=== PATIENT | female | born 1965 | race Two or more races ===

== ENCOUNTER → 2017-08-29 | Outpatient (CLI) | payer OTHER ==
[~2017-08-29] VITALS: Ht 152.4 cm; Wt 67.1 kg
[~2017-08-29] MED LIST: DIOVAN160 M1 PO; FLONASE16 GM NS; IRON325 MG PO; ZYRTEC10 MG PO
== END | disposition home or self-care (01) ==
LOC: PPHC 08:37
DX: B34.9 Viral infection, unspecified (principal)

== ENCOUNTER 2020-09-21 14:33 | Outpatient (CLI) | payer OTHER ==
[~2020-09-21 14:33] MED LIST changes: +DICLOFENAC SODI50 MG PO; +NABUMETONE750 MG PO
== END 2020-09-21 14:41 | disposition home or self-care (01) ==
LOC: RAD 14:33
PROVIDERS: ATTEND Physical Medicine & Rehabilitation
DX: M79.642 Pain in left hand (principal); M89.8X8 Other specified disorders of bone, other site

== ENCOUNTER 2021-02-22 10:02 | Outpatient (CLI) | payer OTHER | END 2021-02-22 10:19 | disposition home or self-care (01) | LOC: MAMO-SONO 10:02 | PROVIDERS: ATTEND Internal Medicine Hematology & Oncology | DX: N64.89 Other specified disorders of breast (principal); Z12.31 Encounter for screening mammogram for malignant neoplasm of breast; D80.1 Nonfamilial hypogammaglobulinemia; I10 Essential (primary) hypertension; E78.2 Mixed hyperlipidemia ==

== ENCOUNTER → 2021-03-17 06:32 | Outpatient (CLI) | payer OTHER | END | disposition home or self-care (01) | LOC: LAB 06:32 | PROVIDERS: ATTEND Internal Medicine Hematology & Oncology | DX: D50.8 Other iron deficiency anemias (principal); R79.89 Other specified abnormal findings of blood chemistry; I10 Essential (primary) hypertension; R74.02 Elevation of levels of lactic acid dehydrogenase [LDH]; K76.89 Other specified diseases of liver; E55.9 Vitamin D deficiency, unspecified; R19.5 Other fecal abnormalities; D47.2 Monoclonal gammopathy; C90.00 Multiple myeloma not having achieved remission; R97.0 Elevated carcinoembryonic antigen [CEA]; R97.8 Other abnormal tumor markers; C50.919 Malignant neoplasm of unspecified site of unspecified female breast; D80.1 Nonfamilial hypogammaglobulinemia; E78.2 Mixed hyperlipidemia ==

== ENCOUNTER 2021-07-05 06:41 | Outpatient (CLI) | payer OTHER | END 2021-07-05 07:03 | disposition home or self-care (01) | LOC: LAB 06:41 | PROVIDERS: ATTEND Internal Medicine Hematology & Oncology | DX: D50.8 Other iron deficiency anemias (principal); R79.89 Other specified abnormal findings of blood chemistry; I10 Essential (primary) hypertension; R74.02 Elevation of levels of lactic acid dehydrogenase [LDH]; K76.89 Other specified diseases of liver; D63.8 Anemia in other chronic diseases classified elsewhere; D55.0 Anemia due to glucose-6-phosphate dehydrogenase [G6PD] deficiency; D51.8 Other vitamin B12 deficiency anemias; D51.1 Vitamin B12 deficiency anemia due to selective vitamin B12 malabsorption with proteinuria; D51.0 Vitamin B12 deficiency anemia due to intrinsic factor deficiency; E03.8 Other specified hypothyroidism; E06.3 Autoimmune thyroiditis; D80.1 Nonfamilial hypogammaglobulinemia; E78.2 Mixed hyperlipidemia ==

== ENCOUNTER 2021-07-05 07:13 | Outpatient (CLI) | payer OTHER | END 2021-07-05 07:14 | disposition home or self-care (01) | LOC: SONOGRAMA 07:13 | PROVIDERS: ATTEND Internal Medicine Hematology & Oncology | DX: E04.2 Nontoxic multinodular goiter (principal); I10 Essential (primary) hypertension; E78.2 Mixed hyperlipidemia; D80.1 Nonfamilial hypogammaglobulinemia ==

== ENCOUNTER 2021-08-03 14:00 | Outpatient (CLI) | payer OTHER | END 2021-08-03 14:11 | disposition home or self-care (01) | LOC: RAD 14:00 | PROVIDERS: ATTEND Physical Medicine & Rehabilitation | DX: M16.12 Unilateral primary osteoarthritis, left hip (principal) ==

== ENCOUNTER 2021-08-22 08:07 | Outpatient (CLI) | payer OTHER | END 2021-08-22 08:09 | disposition home or self-care (01) | LOC: SONOGRAMA 08:07 | PROVIDERS: ATTEND Pathology Anatomic Pathology & Clinical Pathology | DX: E04.2 Nontoxic multinodular goiter (principal) ==

== ENCOUNTER → 2021-11-21 | Outpatient (CLI) | payer OTHER | END | disposition home or self-care (01) | LOC: LAB 06:27 | PROVIDERS: ATTEND Internal Medicine Hematology & Oncology | DX: D80.1 Nonfamilial hypogammaglobulinemia (principal); I10 Essential (primary) hypertension; E78.2 Mixed hyperlipidemia; E04.2 Nontoxic multinodular goiter ==

== ENCOUNTER 2022-04-11 08:04 | Outpatient (CLI) | payer OTHER | END 2022-04-11 08:05 | disposition home or self-care (01) | LOC: RAD 08:04 | PROVIDERS: ATTEND Physical Medicine & Rehabilitation | DX: M54.2 Cervicalgia (principal) ==

== ENCOUNTER 2022-08-17 07:14 | Outpatient (CLI) | payer OTHER | END 2022-08-17 10:34 | disposition home or self-care (01) | LOC: MAMO-SONO 07:14 | PROVIDERS: ATTEND Internal Medicine Hematology & Oncology | DX: Z12.31 Encounter for screening mammogram for malignant neoplasm of breast (principal); N63.0 Unspecified lump in unspecified breast; N64.4 Mastodynia; D80.1 Nonfamilial hypogammaglobulinemia; I10 Essential (primary) hypertension; E78.2 Mixed hyperlipidemia; E03.4 Atrophy of thyroid (acquired) ==

== ENCOUNTER → 2022-09-01 06:35 | Outpatient (CLI) | payer OTHER | END | disposition home or self-care (01) | LOC: LAB 06:35 | PROVIDERS: ATTEND Internal Medicine Hematology & Oncology | DX: D50.8 Other iron deficiency anemias (principal); R79.9 Abnormal finding of blood chemistry, unspecified; I10 Essential (primary) hypertension; R74.02 Elevation of levels of lactic acid dehydrogenase [LDH]; K76.89 Other specified diseases of liver; D51.8 Other vitamin B12 deficiency anemias; E03.8 Other specified hypothyroidism; D47.2 Monoclonal gammopathy; C90.00 Multiple myeloma not having achieved remission; D80.1 Nonfamilial hypogammaglobulinemia; E78.2 Mixed hyperlipidemia; E04.2 Nontoxic multinodular goiter ==

== ENCOUNTER 2023-03-03 07:29 | Outpatient (CLI) | payer OTHER | END 2023-03-03 07:44 | disposition home or self-care (01) | LOC: LAB 07:29 | PROVIDERS: ATTEND Internal Medicine Hematology & Oncology | DX: D50.8 Other iron deficiency anemias (principal); R79.9 Abnormal finding of blood chemistry, unspecified; I10 Essential (primary) hypertension; R74.02 Elevation of levels of lactic acid dehydrogenase [LDH]; K76.89 Other specified diseases of liver; E55.9 Vitamin D deficiency, unspecified; E03.8 Other specified hypothyroidism; D80.1 Nonfamilial hypogammaglobulinemia; E78.2 Mixed hyperlipidemia; E04.2 Nontoxic multinodular goiter ==

== ENCOUNTER 2023-05-29 10:04 | Outpatient (CLI) | payer OTHER | END 2023-05-29 10:12 | disposition home or self-care (01) | LOC: RAD 10:04 | PROVIDERS: ATTEND Physical Medicine & Rehabilitation | DX: M79.672 Pain in left foot (principal) ==

== ENCOUNTER 2023-08-16 07:06 | Outpatient (CLI) | payer OTHER | END 2023-08-16 07:17 | disposition home or self-care (01) | LOC: SONOGRAMA 07:06 | PROVIDERS: ATTEND Internal Medicine Endocrinology, Diabetes & Metabolism | DX: E04.8 Other specified nontoxic goiter (principal) ==

== ENCOUNTER 2023-08-16 07:17 | Outpatient (CLI) | payer OTHER ==
[2023-08-16 08:48] LABS: T4 FREE 0.9 NG/ML (0.76-1.46); TSH 2.77 uIU/mL (0.358-3.74)
== END 2023-08-16 07:29 | disposition home or self-care (01) ==
LOC: LAB 07:17
PROVIDERS: ATTEND Internal Medicine Endocrinology, Diabetes & Metabolism
DX: E03.8 Other specified hypothyroidism (principal)

== ENCOUNTER 2024-03-01 07:20 | Outpatient (CLI) | payer OTHER ==
[~2024-03-01 07:20] MED LIST changes: +COMPLEX B-1001 EACH; +CRESTOR10 MG; +IRBESARTAN75 MG; +NEURONTIN300 MG
[2024-03-01 08:21] LABS: HEMATOCRIT 34.7 % (36.0-45.00); HEMOGLOBIN 12.5 g/dL (12.0-15.00); MEAN CELL VOLUME 82.4 fL (80.00-100.00); MEAN CORPUSCULAR HEMOGLOBIN 29.7 pg (27.00-32.0); PLATELET COUNT 232 K/uL (150-450); RED BLOOD COUNT 4.22 M/uL (4.00-6.00); RED CELL DISTRIBUTION WIDTH 13.2 % (11.5-14.5)
[2024-03-01 09:13] LABS: ALBUMIN 4.1 gm/dL (3.4-5.0); BILIRUBIN TOTAL 0.41 mg/dL (0.3-1.2); CALCIUM 9.5 mg/dL (8.5-10.1); CREATININE SERUM 1.08 mg/dL (0.55-1.02); GFR 51.57; POTASSIUM 4.32 mEq/L (3.5-5.1); T4 FREE 0.91 NG/ML (0.76-1.46); TOTAL PROTEIN 7.1 gm/dL (6.4-8.2); TSH 1.72 uIU/mL (0.358-3.74)
[2024-03-03 12:17] LABS: FOLIC ACID > 20.00 ng/ml (4.78-20)
[2024-03-03 13:00] LABS: MANUAL PLATELET COUNT 558; PLATELET ESTIMATE INCREASED (NORMAL)
[2024-03-04 13:11] LABS: ANTI THYROID PEROXIDASE < 9 IU/mL (0-34)
[2024-03-05 15:08] LABS: PARIETAL CELL ANTIBODIES 2.4 Units (0.0-20.0)
== END 2024-03-01 07:35 | disposition home or self-care (01) ==
LOC: LAB 07:20
PROVIDERS: ATTEND Internal Medicine Hematology & Oncology
DX: D51.3 Other dietary vitamin B12 deficiency anemia (principal); D80.1 Nonfamilial hypogammaglobulinemia; I10 Essential (primary) hypertension; E78.2 Mixed hyperlipidemia; E04.2 Nontoxic multinodular goiter; D50.8 Other iron deficiency anemias; R79.9 Abnormal finding of blood chemistry, unspecified; R74.02 Elevation of levels of lactic acid dehydrogenase [LDH]; K76.89 Other specified diseases of liver; D51.1 Vitamin B12 deficiency anemia due to selective vitamin B12 malabsorption with proteinuria; E03.8 Other specified hypothyroidism; E06.3 Autoimmune thyroiditis

== ENCOUNTER 2024-03-05 08:15 | Outpatient (CLI) | payer OTHER ==
[2024-03-05 08:54] LABS: ob NEGATIVE (NEGATIVE)
== END 2024-03-05 08:16 | disposition home or self-care (01) ==
LOC: LAB 08:15
PROVIDERS: ATTEND Internal Medicine Hematology & Oncology
DX: D51.3 Other dietary vitamin B12 deficiency anemia (principal); D80.1 Nonfamilial hypogammaglobulinemia; I10 Essential (primary) hypertension; E78.2 Mixed hyperlipidemia; E04.2 Nontoxic multinodular goiter; E03.8 Other specified hypothyroidism; E06.3 Autoimmune thyroiditis; R79.9 Abnormal finding of blood chemistry, unspecified; D50.8 Other iron deficiency anemias; R74.02 Elevation of levels of lactic acid dehydrogenase [LDH]; K76.89 Other specified diseases of liver; D51.1 Vitamin B12 deficiency anemia due to selective vitamin B12 malabsorption with proteinuria

== ENCOUNTER 2024-03-26 10:19 | Outpatient (CLI) | payer OTHER | END 2024-03-26 10:20 | disposition home or self-care (01) | LOC: NUCLEAR 10:19 | PROVIDERS: ATTEND Internal Medicine Hematology & Oncology | DX: I73.9 Peripheral vascular disease, unspecified (principal) ==

== ENCOUNTER → 2024-03-27 07:23 | Outpatient (CLI) | payer OTHER | END | disposition home or self-care (01) | LOC: NUCLEAR 07:23 | PROVIDERS: ATTEND Internal Medicine Hematology & Oncology | DX: I70.213 Atherosclerosis of native arteries of extremities with intermittent claudication, bilateral legs (principal) ==

== ENCOUNTER 2024-08-14 07:10 | Outpatient (CLI) | payer OTHER | END 2024-08-14 07:15 | disposition home or self-care (01) | LOC: SONOGRAMA 07:10 | PROVIDERS: ATTEND Internal Medicine Endocrinology, Diabetes & Metabolism | DX: E04.8 Other specified nontoxic goiter (principal) ==

== ENCOUNTER → 2024-08-14 08:30 | Outpatient (CLI) | payer OTHER ==
[2024-08-14 10:35] LABS: T4 FREE 0.99 NG/ML (0.76-1.46); TSH 1.65 uIU/mL (0.358-3.74)
== END | disposition home or self-care (01) ==
LOC: LAB 08:30
PROVIDERS: ATTEND Internal Medicine Endocrinology, Diabetes & Metabolism
DX: E04.8 Other specified nontoxic goiter (principal)

== ENCOUNTER 2024-10-12 06:46 | Emergency (ER) | payer OTHER ==
[~2024-10-12] VITALS: Ht 154.9 cm; Wt 73.5 kg
[2024-10-12] MEDS ORDERED: FAMOTIDINE/PF 20 MG in 0.9 % SODIUM CHLORIDE 8 ML IV PUSH STA (07:38)
[2024-10-12] MEDS ORDERED: 0.9 % SODIUM CHLORIDE 1,000 ML IV SCH (07:45)
[2024-10-12] MEDS ORDERED: ONDANSETRON HCL 2 MG/ML VIAL IV ONE (07:45)
[2024-10-12] MEDS ORDERED: ONDANSETRON HCL 2 MG/ML VIAL ONE (07:53)
[2024-10-12] MEDS ORDERED: FAMOTIDINE/PF 20 MG/2 ML VIAL ONE (07:54)
[2024-10-12 08:49] LABS: HEMATOCRIT 36.3 % (36.0-45.00); HEMOGLOBIN 12.7 g/dL (12.0-15.00); MEAN CELL VOLUME 84.3 fL (80.00-100.00); MEAN CORPUSCULAR HEMOGLOBIN 29.4 pg (27.00-32.0); MEAN CORPUSCULAR HGB CONC 34.8 g/dl (32.0-36.0); PLATELET COUNT 265 K/uL (150-450); RED BLOOD COUNT 4.31 M/uL (4.00-6.00); RED CELL DISTRIBUTION WIDTH 12.9 % (11.5-14.5)
[2024-10-12 09:04] LABS: ALBUMIN 3.7 gm/dL (3.4-5.0); BILIRUBIN TOTAL 0.46 mg/dL (0.3-1.2); CALCIUM 9.5 mg/dL (8.5-10.1); CREATININE SERUM 1.07 mg/dL (0.55-1.02); GFR 52.13; GLOBULINA 3.6 G/DL (2.4-3.5); POTASSIUM 4.53 mEq/L (3.5-5.1); TOTAL PROTEIN 7.3 gm/dL (6.4-8.2)
== END 2024-10-12 15:45 | disposition home or self-care (01) ==
LOC: ER 06:47
PROVIDERS: General Practice
DX: R19.7 Diarrhea, unspecified (principal); D64.89 Other specified anemias

== ENCOUNTER 2025-05-14 08:22 | Emergency (ER) | payer OTHER ==
[~2025-05-14] VITALS: Ht 154.9 cm; Wt 80.3 kg
[2025-05-14] MEDS ORDERED: DEXAMETHASONE SODIUM PHOSPHATE 4 MG/ML VIAL IM STA (09:08)
[2025-05-14] MEDS ORDERED: DIPHENHYDRAMINE HCL 50 MG/ML VIAL 1ML IM ONE (09:15)
[2025-05-14] MEDS ORDERED: ACETAMINOPHEN 500 MG GEL..CAP PO ONE (09:15)
[2025-05-14 10:22] LABS: BASO % 0.5 % (0.1-1.2); EOS # 0.13 (0.04-0.54); EOS % 1.8 % (0.7-7.0); LYMPH # 1.62 (1.18-3.74); LYMPH % 21.9 % (19.3-53.1); MEAN PLATELET VOLUME 9.40 fl (9.4-12.4); MONO # 0.57 (0.24-0.82); MONO % 7.7 % (4.7-12.5); NEUT # 5.02 (1.56-6.13); NEUT % 67.8 % (34.0-71.1); RED CELL DISTRIBUTION WIDTH 12.5 % (11.6-14.4)
[2025-05-14 10:49] LABS: BUN CREA RATIO 13.0 (7.0-25.0); CREATININE SERUM 1.13 mg/dL (0.55-1.02); GFR 48.79; GLUCOSE FASTING 120.0 mg/dL (65-100); OSMOLALITY SERUM 285.0 MOSM/KG (275-295)
[2025-05-14 10:50] LABS: INR 1.0
== END 2025-05-14 14:40 | disposition home or self-care (01) ==
LOC: ER 08:23
PROVIDERS: General Practice
DX: R51.9 Headache, unspecified (principal); I10 Essential (primary) hypertension

== ENCOUNTER 2025-05-16 07:59 | Inpatient (IN) | payer OTHER ==
[~2025-05-16] VITALS: Ht 154.9 cm; Wt 79.4 kg
--- NOTE | 2025-05-16 08:46 | NUR ---
SE RECIBE PACIENTE ALERRTA Y ORIENTADA X3 PACIENTE REFIERE TOS SECA, DOLOR DE GARGANTA Y DE OIDO. SE MIDEN SIGNOS VITALES Y SE REALIZA EKG POR SIGNOS VITALES ALTERADOS. DR MOFFETT EVALUA. SE UBIC APACIENTEB PARA EVALUACION MEDICA.
[2025-05-16] MEDS ORDERED: LEVALBUTEROL HCL 1.25 MG/3 ML SOLUTION IH ONE (09:00)
[2025-05-16] MEDS ORDERED: HYDROCODONE/CHLORPHEN P-STIREX 5 ML ML PO ONE (09:00)
[2025-05-16] MEDS ORDERED: IPRATROPIUM BROMIDE 0.5 MG/2.5 ML AMPUL.NEB IH ONE (09:00)
[2025-05-16] MEDS ORDERED: METHYLPREDNISOLONE SOD SUCC 125 MG VIAL IV ONE (09:00)
[2025-05-16] MEDS ORDERED: 0.9 % SODIUM CHLORIDE 500 ML IV ONE (09:00)
[2025-05-16 09:26] LABS: BASO % 0.7 % (0.1-1.2); EOS # 0.19 (0.04-0.54); EOS % 1.6 % (0.7-7.0); LYMPH # 1.53 (1.18-3.74); LYMPH % 13.2 % (19.3-53.1); MEAN PLATELET VOLUME 9.60 fl (9.4-12.4); MONO # 0.86 (0.24-0.82); MONO % 7.4 % (4.7-12.5); NEUT # 8.89 (1.56-6.13); NEUT % 76.8 % (34.0-71.1); RED CELL DISTRIBUTION WIDTH 12.8 % (11.6-14.4)
[2025-05-16 10:03] LABS: ALT/SGPT 28.0 U/L (12-78); AST/SGOT 17.0 U/L (15-37); BILIRUBIN TOTAL 0.5 mg/dL (0.3-1.2); BUN CREA RATIO 13.0 (7.0-25.0); CREATININE SERUM 1.36 mg/dL (0.55-1.02); GFR 39.4; GLOBULINA 3.8 G/DL (2.4-3.5); GLUCOSE FASTING 177.0 mg/dL (65-100); OSMOLALITY SERUM 289.0 MOSM/KG (275-295)
[2025-05-16 10:15] LABS: COVID-19 AG NEGATIVE (NEGATIVE)
[2025-05-16] MEDS ORDERED: CEFTRIAXONE SODIUM 2,000 MG in 0.9 % SODIUM CHLORIDE 100 ML IV ONE (13:00)
[2025-05-16] MEDS ORDERED: AZITHROMYCIN 500 MG in DEXTROSE 5 % IN WATER 250 ML IV ONE (13:00)
[2025-05-16] MEDS ORDERED: ACETAMINOPHEN 500 MG GEL..CAP PO PRN (15:30)
--- NOTE | 2025-05-16 16:25 | NUR ---
A PACIENTE SE LE [facility] DC [address] YA PAG[address]O Y AUT POR LIC KRISTIE CHRIS Y NOTIFICADO POR JAYNA FELDER CON UN 40% DE DESCUENTO PAGO FINAL DE [phone]
[2025-05-16] MEDS ORDERED: IPRATROPIUM BROMIDE 0.5 MG/2.5 ML AMPUL.NEB IH SCH (17:00)
[2025-05-16] MEDS ORDERED: LEVALBUTEROL HCL 1.25 MG/3 ML SOLUTION IH SCH (17:00)
[2025-05-16 17:34] LABS: URINE APPEARANCE Clear; URINE BILIRRUBIN Negative (NEGATIVE); URINE BLOOD Trace; URINE COLOR Yellow; URINE KETONE Negative (NEGATIVE); URINE LEUKOCYTE Trace; URINE NITRATE Negative; URINE PROTEIN Negative (NEGATIVE); URINE UROBILINOGEN 0.2 E.U./dl
[2025-05-16 17:39] LABS: URINE BACTERIA 56.3 uL (0.0-1933); URINE EPITHELIAL CELLS 10.9 uL (0.0-38.8); URINE RBC 10.9 uL (0.0-20.8); URINE WBC 3.6 uL (0.0-23.2)
[2025-05-16 17:42] LABS: INR 1.01
[2025-05-16 17:45] LABS: TYPE CELLS SQUAMOUS; URINE CAST 0.00 uL (0.0-1.40); URINE GLUCOSE 500 MG/DL (NEGATIVE)
[2025-05-16] MEDS ORDERED: METHYLPREDNISOLONE SOD SUCC 40 MG VIAL IV SCH (21:00)
[2025-05-16] MEDS ORDERED: BENZONATATE 100 MG CAPSULE PO SCH (23:31)
[2025-05-17] MEDS ORDERED: GUAIFENESIN 200 MG/10 ML BLIST.PACK PO SCH
[2025-05-17] MEDS ORDERED: SODIUM CHLORIDE 0.45 % 1,000 ML IV SCH (06:00)
[2025-05-17 07:58] LABS: BASO % 0.2 % (0.1-1.2); EOS # 0.00 (0.04-0.54); EOS % 0.0 % (0.7-7.0); LYMPH # 1.79 (1.18-3.74); LYMPH % 15.5 % (19.3-53.1); MEAN PLATELET VOLUME 10.00 fl (9.4-12.4); MONO # 0.42 (0.24-0.82); MONO % 3.6 % (4.7-12.5); NEUT # 9.25 (1.56-6.13); NEUT % 80.1 % (34.0-71.1); RED CELL DISTRIBUTION WIDTH 12.7 % (11.6-14.4)
[2025-05-17 08:00] VITALS: BP 145/56; O2SAT 100
[2025-05-17 08:08] LABS: INR 0.99
[2025-05-17 08:12] LABS: BUN CREA RATIO 15.0 (7.0-25.0); CREATININE SERUM 1.09 mg/dL (0.55-1.02); GFR 50.86; GLUCOSE FASTING 182.0 mg/dL (65-100); OSMOLALITY SERUM 291.0 MOSM/KG (275-295)
[2025-05-17] MEDS ORDERED: FAMOTIDINE/PF 20 MG in 0.9 % SODIUM CHLORIDE 8 ML IV PUSH SCH (09:00)
[2025-05-17] MEDS ORDERED: CEFTRIAXONE SODIUM 2,000 MG in 0.9 % SODIUM CHLORIDE 100 ML IV SCH (09:00)
[2025-05-17] MEDS ORDERED: AZITHROMYCIN 500 MG in DEXTROSE 5 % IN WATER 250 ML IV SCH (09:00)
[2025-05-17] MEDS ORDERED: BENZONATATE 200 MG CAPSULE PO SCH (09:00)
[2025-05-17] MEDS ORDERED: CLOTRIMAZOLE 10 MG TROCHE MM SCH (14:00)
[2025-05-17 16:47] VITALS: BP 132/79; O2SAT 96
[2025-05-18 00:30] VITALS: BP 138/75; O2SAT 98
[2025-05-18 08:00] VITALS: BP 165/89; O2SAT 97
[2025-05-18 16:00] VITALS: BP 163/94; O2SAT 100
[2025-05-19] VITALS: BP 172/84; O2SAT 97
[2025-05-19] MEDS ORDERED: ACETAMINOPHEN 500 MG GEL..CAP PO SCH
[2025-05-19] MEDS ORDERED: hydrALAZINE HCL 20 MG VIAL IV PRN (05:45)
[2025-05-19] MEDS ORDERED: BUTALB/ACETAMINOPHEN/CAFFEINE 1 TAB TABLET PO PRN (07:45)
[2025-05-19 08:24] VITALS: BP 151/78; O2SAT 95
[2025-05-19] MEDS ORDERED: IRBESARTAN 150 MG TABLET PO SCH (09:00)
[2025-05-19] MEDS ORDERED: IRBESARTAN 75 MG TABLET PO SCH (09:00)
[2025-05-19 15:04] VITALS: BP 144/84; O2SAT 99
[2025-05-20 03:16] VITALS: BP 147/76; O2SAT 98
[2025-05-20] MEDS ORDERED: CLOTRIMAZOLE 10 MG TROCHE MM SCH (05:00)
[2025-05-20] MEDS ORDERED: PATIENTS OWN MEDICATION (MEDICAMENTO EN PISO) PO SCH (09:00)
[2025-05-20 09:45] VITALS: BP 118/84; O2SAT 97
[2025-05-20] MEDS ORDERED: AZITHROMYCIN 500 MG VIAL IV ONE (11:07)
[2025-05-20] MEDS ORDERED: AZITHROMYCIN 500 MG VIAL IV NR (11:15)
[2025-05-20 16:00] VITALS: BP 187/78; O2SAT 97
[2025-05-20] MEDS ORDERED: AMLODIPINE BESYLATE 5 MG TABLET PO SCH (21:00)
[2025-05-20] MEDS ORDERED: BUDESONIDE 0.5 MG/2 ML AMPUL.NEB IH SCH (22:06)
[2025-05-21 00:30] VITALS: BP 138/74; O2SAT 98
[2025-05-21] MEDS ORDERED: AZITHROMYCIN 500 MG VIAL IV ONE (07:26)
[2025-05-21] MEDS ORDERED: FAMOTIDINE/PF 20 MG/2 ML VIAL ONE (07:27)
[2025-05-21] MEDS ORDERED: KETOROLAC TROMETHAMINE 30 MG VIAL IV STA (08:08)
[2025-05-21] MEDS ORDERED: KETOROLAC TROMETHAMINE 30 MG VIAL IV PRN (08:15)
[2025-05-21] MEDS ORDERED: METHYLPREDNISOLONE SOD SUCC 40 MG VIAL IV NR (08:15)
[2025-05-21 08:35] VITALS: BP 147/78; O2SAT 95
[2025-05-21] MEDS ORDERED: AZITHROMYCIN 500 MG VIAL IV SCH (09:00)
[2025-05-21] MEDS ORDERED: DIPHENHYDRAMINE HCL 50 MG/ML VIAL 1ML IV STA (09:02)
[2025-05-21 13:29] LABS: BASO % 0.5 % (0.1-1.2); EOS # 0.15 (0.04-0.54); EOS % 1.5 % (0.7-7.0); LYMPH # 2.17 (1.18-3.74); LYMPH % 21.9 % (19.3-53.1); MEAN PLATELET VOLUME 9.50 fl (9.4-12.4); MONO # 0.37 (0.24-0.82); MONO % 3.7 % (4.7-12.5); NEUT # 7.06 (1.56-6.13); NEUT % 71.5 % (34.0-71.1); RED CELL DISTRIBUTION WIDTH 13.0 % (11.6-14.4)
[2025-05-21 14:02] LABS: ALT/SGPT 23.0 U/L (12-78); AST/SGOT 13.0 U/L (15-37); BILIRUBIN TOTAL 0.25 mg/dL (0.3-1.2); BUN CREA RATIO 10.0 (7.0-25.0); CREATININE SERUM 1.0 mg/dL (0.55-1.02); GFR 56.18; GLOBULINA 3.0 G/DL (2.4-3.5); GLUCOSE FASTING 133.0 mg/dL (65-100); OSMOLALITY SERUM 286.0 MOSM/KG (275-295)
[2025-05-21 16:54] VITALS: BP 153/83
[2025-05-22 01:05] VITALS: BP 146/72; O2SAT 97
[2025-05-22 07:30] VITALS: BP 116/75; BP 164/84; O2SAT 98
[2025-05-22] MEDS ORDERED: AZITHROMYCIN 500 MG VIAL IV ONE (07:59)
[2025-05-22] MEDS ORDERED: LEVALBUTEROL HCL 0.63 MG/3 ML SOLUTION IH SCH (08:00)
[2025-05-22] MEDS ORDERED: AMLODIPINE BESYLATE 5 MG TABLET PO SCH (17:00)
[2025-05-22 18:18] VITALS: BP 161/82; O2SAT 97
[2025-05-23 00:30] VITALS: BP 144/79; O2SAT 98
[2025-05-23] MEDS ORDERED: AZITHROMYCIN 500 MG VIAL IV ONE (07:03)
[2025-05-23 08:00] VITALS: BP 124/72; BP 146/83; O2SAT 94; O2SAT 99
[2025-05-23] MEDS ORDERED: KETOROLAC30 MG/1 M2 PO (11:48)
== END 2025-05-23 13:27 | disposition home or self-care (01) | DRG 194 ==
LOC: ER 07:59 → SURH 22:59
PROVIDERS: General Practice; Internal Medicine; ADMIT Internal Medicine; ATTEND Internal Medicine
PROC: 3E0F7GC Introduction of Other Therapeutic Substance into Respiratory Tract, Via Natural or Artificial Opening (ICD-10-PCS; principal; 2025-05-16)
PROC: 4A033R1 Measurement of Arterial Saturation, Peripheral, Percutaneous Approach (ICD-10-PCS; 2025-05-16)
PROC: BB24ZZZ Computerized Tomography (CT Scan) of Bilateral Lungs (ICD-10-PCS; 2025-05-16)
PROC: BW2FYZZ Computerized Tomography (CT Scan) of Neck using Other Contrast (ICD-10-PCS; 2025-05-18)
PROC: B020YZZ Computerized Tomography (CT Scan) of Brain using Other Contrast (ICD-10-PCS; 2025-05-21)
PROC: B020ZZZ Computerized Tomography (CT Scan) of Brain (ICD-10-PCS; 2025-05-21)
PROC: BW38ZZZ Magnetic Resonance Imaging (MRI) of Head (ICD-10-PCS; 2025-05-22)
DX: J18.9 Pneumonia, unspecified organism (principal); B37.0 Candidal stomatitis; N17.9 Acute kidney failure, unspecified; J45.20 Mild intermittent asthma, uncomplicated; J00 Acute nasopharyngitis [common cold]; B34.9 Viral infection, unspecified; J30.9 Allergic rhinitis, unspecified; R51.9 Headache, unspecified
CPT/HCPCS: 70551